=== PATIENT | male | born 1950 | race Caucasian/White ===

== ENCOUNTER 2017-09-22 14:30 | Outpatient (RCR) | payer MEDICARE, BC, SELFPAY | END 2017-10-20 08:25 | disposition home or self-care (01) | LOC: PT 14:30 | PROVIDERS: Visit Provider Podiatrist Foot & Ankle Surgery | DX: M72.2 Plantar fascial fibromatosis (principal); S92.015 Nondisplaced fracture of body of left calcaneus | CPT/HCPCS: 97033; 97110; 97163 ==

== ENCOUNTER → 2019-04-07 13:16 | Outpatient (POV) | payer MEDICARE, BC, SELFPAY | DX: Z00.00 Encounter for general adult medical examination without abnormal findings (principal) ==